=== PATIENT | female | born 1940 | race Hispanic/Latino ===

== ENCOUNTER → 2018-09-22 | Outpatient (CLI) | payer MEDICARE | LOC: MAMMO 13:44 | PROVIDERS: ATTEND Internal Medicine | DX: Z12.31 Encounter for screening mammogram for malignant neoplasm of breast (principal) | CPT/HCPCS: 77067 ==

== ENCOUNTER → 2020-01-16 | Outpatient (CLI) | payer MEDICARE ==
--- NOTE | 2020-01-16 15:21 | Diagnostic Imaging Report ---
TECHNIQUE: Frontal and lateral views of the chest. INDICATION: ^SIMPLE CHRONIC BRONCHITIS COMPARISON: None. IMPRESSION: Lines and hardware: None. Heart and mediastinum: Normal cardiomediastinal silhouette. Lungs and pleura: No focal airspace consolidation. No pleural effusion. No pneumothorax. Soft tissues and bones: No acute bony abnormality. Signed by: Delonte Kunz MD on 01/16/2020 3:18 PM
== END ==
LOC: RAD 14:22
PROVIDERS: ATTEND Internal Medicine
DX: J41.0 Simple chronic bronchitis (principal)
CPT/HCPCS: 71046

== ENCOUNTER 2020-04-05 20:18 | Inpatient (IN) | payer MEDICARE, OTHER ==
[~2020-04-05] VITALS: Ht 149.9 cm; Wt 61.3 kg
[2020-04-05] MEDS ORDERED: ONDANSETRON HCL INJ 2MG/ML 2ML 2 MG/ML VIAL IV STA (20:53)
[2020-04-05] MEDS ORDERED: SODIUM CHLORIDE 0.9% 1000ML 1,000 ML IV ONE ×2 (21:00→23:45)
--- NOTE | 2020-04-05 21:09 | Emergency Department Note ---
History of Present Illnes History of Present Illness Chief Complaint: COVID PUI History of Present Illness This is a 79 year old female presents to ED with report of generalized weakness, black/dark stools, diarrhea, n/v, nose bleeds, body aches, abdominal pain x3 days; PT STATES SENT HER FOR POSSIBLE COVID BUT PT'S SYMPTOMS ARE OF A GI NATURE. . Historian: Patient Arrival Mode: Car Onset (how long ago): day(s) (3) Location: ABD PAIN Quality: BLACK STOOLS, DIARRHEA, PAIN, N/V, GENERALIZED WEAKNESS Radiation: Reports non-radiation Severity: moderate Onset quality: gradual Duration (how long): day(s) (3) Timing of current episode: constant Progression: worsening Chronicity: new Context: Denies recent illness, Denies recent surgery Relieving factors: none Exacerbating factors: none Associated symptoms: Reports denies other symptoms Treatments prior to arrival: none Past Medical/Family History Physician Review I have reviewed the patient's past medical and family history. Any updates have been documented here. Past Medical History Recent Fever: No Clinical Suspicion of Infectio: No New/Unexplained Change in Ment: No Past Medical History: Hypertension, CAD, Anemia, DVT/PE Other Medical History: Glaucoma PVD Past Surgical History: PCI Social History Smoking Cessation: Never Smoker Alcohol Use: None Any Illegal Drug Use: No Family History Family history of heart diseas: Yes Other family history HTN,CAD Review of Systems Review of Systems Constitutional: Reports no symptoms EENTM: Reports no symptoms Cardiovascular: Reports no symptoms Respiratory: Reports no symptoms Gastrointestinal: Reports as per HPI Genitourinary: Reports no symptoms Musculoskeletal: Reports no symptoms Integumentary: Reports no symptoms Neurological: Reports no symptoms Psychological: Reports no symptoms Endocrine: Reports no symptoms Hematological/Lymphatic: Reports no symptoms Physical Exam Related Data Allergies: Coded Allergies: adhesive tape (Verified Allergy, Intermediate, 04/05/20) Triage Vital Signs Vital Signs Date Time Temp Pulse Resp B/P (MAP) Pulse Ox O2 Delivery O2 Flow Rate FiO2 04/05/20 20:39 98.1 78 15 98/59 98 Room Air Vital signs reviewed: Yes Physical Exam CONSTITUTIONAL Constitutional: Present well-developed, Present well-nourished; Absent distressed HENT HENT: Present normocephalic, Present atraumatic, Present oropharynx clear/moist, Present nose normal HENT L/R: Present left ext ear normal, Present right ext ear normal EYES Eyes: Reports PERRL, Reports conjunctivae normal NECK Neck: Present ROM normal PULMONARY Pulmonary: Present effort normal, Present breath sounds normal CARDIOVASCULAR Cardiovascular: Present regular rhythm, Present heart sounds normal, Present capillary refill normal, Present normal rate GASTROINTESTINAL Abdominal: Present soft, Present bowel sounds normal, Present tender (ANA PAULA UMBILICAL AND LLQ) GENITOURINARY Genitourinary: Present exam deferred SKIN Skin: Present warm, Present dry MUSCULOSKELETAL Musculoskeletal: Present ROM normal NEUROLOGICAL Neurological: Present alert, Present oriented x 3, Present no gross motor or sensory deficits PSYCHOLOGICAL Psychological: Present mood/affect normal, Present judgement normal Exam - additional comments RECTAL BROWN STOOL PRESENT Results Laboratory Laboratory Laboratory Tests Test 04/05/20 21:59 04/05/20 21:50 04/05/20 20:50 Urine Color Yellow (YELLOW) Urine Clarity Clear (CLEAR) Urine pH 5 (5 - 7) Urine Specific [place] 1.010 (1.010-1.025) Urine Protein Negative (NEGATIVE) Urine Glucose (UA) Negative (NEGATIVE) Urine Ketones Negative (NEGATIVE) Urine Blood Negative (NEGATIVE) Urine Nitrite Negative (NEGATIVE) Urine Bilirubin Negative (NEGATIVE) Urine Urobilinogen 0.2 mg/dL (0.2 - 1) Urine Leukocyte Esterase Negative (NEGATIVE) Urine RBC None /HPF (0-5) Urine WBC None /HPF (0-5) Urine Epithelial Cells Moderate /LPF (NONE) Urine Bacteria Few /HPF (NONE) Stool Occult Blood Positive (NEGATIVE) White Blood Count 6.96 x10e3/uL (4.8-10.8) Red Blood Count 3.54 x10e6/uL (3.6-5.1) Hemoglobin 11.2 g/dL (12.0-16.0) Hematocrit 35.5 % (34.2-44.1) Mean Corpuscular Volume 100.3 fL (81-99) Mean Corpuscular Hemoglobin 31.6 pg (28-32) Mean Corpuscular Hemoglobin Concent 31.5 g/dL (31-35) Red Cell Distribution Width 14.2 % (11.7-14.4) Platelet Count 301 x10e3/uL (140-360) Neutrophils (%) (Auto) 65.5 % (38.7-80.0) Lymphocytes (%) (Auto) 20.5 % (18.0-39.1) Monocytes (%) (Auto) 11.4 % (4.4-11.3) Eosinophils (%) (Auto) 2.0 % (0.0-6.0) Basophils (%) (Auto) 0.3 % (0.0-1.0) Neutrophils # (Auto) 4.6 (2.1-6.9) Lymphocytes # (Auto) 1.4 (1.0-3.2) Monocytes # (Auto) 0.8 (0.2-0.8) Eosinophils # (Auto) 0.1 (0.0-0.4) Basophils # (Auto) 0.0 (0.0-0.1) Absolute Immature Granulocyte (auto 0.02 x10e3/uL (0-0.1) Prothrombin Time 12.8 seconds (11.9-14.5) Prothromb Time International Ratio 0.92 Activated Partial Thromboplast Time 30.4 seconds (23.8-35.5) Sodium Level 136 mmol/L (136-145) Potassium Level 4.5 mmol/L (3.5-5.1) Chloride Level 108 mmol/L (98-107) Carbon Dioxide Level 17 mmol/L (22-29) Anion Gap 15.5 mmol/L (8-16) Blood Urea Nitrogen 68 mg/dL (7-26) Creatinine 5.20 mg/dL (0.57-1.11) Estimat Glomerular Filtration Rate 8 ML/MIN (60-) BUN/Creatinine Ratio 13 (6-25) Glucose Level 80 mg/dL (74-118) Calcium Level 9.1 mg/dL (8.4-10.2) Total Bilirubin 0.5 mg/dL (0.2-1.2) Aspartate Amino Transf (AST/SGOT) 17 IU/L (5-34) Alanine Aminotransferase (ALT/SGPT) 17 IU/L (0-55) Alkaline Phosphatase 84 IU/L (40-150) Total Protein 7.0 g/dL (6.5-8.1) Albumin 3.4 g/dL (3.5-5.0) Globulin 3.6 g/dL (2.3-3.5) Albumin/Globulin Ratio 0.9 (0.8-2.0) Amylase Level 116 U/L (25-125) Lipase 43 U/L (8-78) Lab results reviewed: Yes Imaging Imaging results reviewed: Yes Impressions EXAM: CT Abdomen and Pelvis WITHOUT contrast INDICATION: ABD PAIN, BLACK DIARRHEAD, WEAKNESS COMPARISON: None. TECHNIQUE: Abdomen and pelvis were scanned utilizing a multidetector helical scanner from the lung base to the pubic symphysis without administration of IV contrast. Absence of intravenous contrast decreases sensitivity for detection of focal lesions and vascular pathology. Coronal and sagittal reformations were obtained. Routine protocol was performed. IV CONTRAST: None ORAL CONTRAST: None COMPLICATIONS: None RADIATION DOSE: Total DLP: 591.94 mGy*cm Estimated effective dose: (DLP x 0.015 x size factor) mSv CTDIvol has been reviewed. It is below the limits set by the Radiation Protocol Committee (RPC). Dose modulation, iterative reconstruction, and/or weight based adjustment of the mA/kV was utilized to reduce the radiation dose to as low as reasonably achievable. FINDINGS: LINES and TUBES: None. LOWER THORAX: Central lobular emphysema. 6 mm subpleural nodule in the right middle lobe. Lingular atelectasis. Moderate fluid and debris for hiatal hernia. HEPATOBILIARY: 12 mm simple right hepatic cyst. Additional subcentimeter hypoattenuating lesions are too small to characterize, possibly additional cysts. No biliary ductal dilation. GALLBLADDER: No radio-opaque stones or sludge. No wall thickening. SPLEEN: No splenomegaly. PANCREAS: No focal masses or ductal dilatation. ADRENALS: No adrenal nodules KIDNEYS/URETERS: Renal atrophy. Duplicated left renal collecting system. No hydronephrosis. No cystic or solid mass lesions. Tiny punctate calcifications could represent vascular calcifications versus nonobstructive intrarenal calculi. GI TRACT: Diverticulosis without evidence of acute diverticulitis. No dilated bowel loops. Appendix is normal. PELVIC ORGANS/BLADDER: Unremarkable. LYMPH NODES: No lymphadenopathy. VESSELS: Diffuse atherosclerotic calcification of the abdominal aorta and its branches without aneurysmal dilatation of the abdominal aorta. PERITONEUM / RETROPERITONEUM: No free air or fluid. BONES: Bones are demineralized. Degenerative changes of the lumbar spine. Grade 1 anterolisthesis of L4 on L5. Subacute appearing nondisplaced right inferior pubic ramus fracture with healing changes. SOFT TISSUES: Unremarkable. IMPRESSION: 1. Subacute appearing nondisplaced right inferior pubic ramus fracture with fracture lucency and healing changes. 2. Centrilobular emphysema with a 6 mm subpleural pulmonary nodule in the right middle lobe. Follow-up low-dose chest CT is recommended in 6 months. 3. Colonic diverticulosis without evidence of acute diverticulitis. 4. No acute abdominopelvic process is identified on this non-contrast exam. Signed by: Sabrina Watson MD on 04/05/2020 11:26 PM Dictated By: SABRINA WATSON MD 25 Transcribed By: DIMAS on 04/05/202325 COPY TO: JOAO GLOVER MD~ Assessment & Plan Medical Decision Making MDM PT WITH LLQ PAIN, N/V/D, BLACK STOOLS CBC, CMP, AMYLASE,LIPASE, UA, CT ABD/PELVIS ORDERED TO EVAL FOR PANCREATITIS, ANEMIA, DIVERTICULITIS, UTI, COLITIS, GI BLEED. 1 LITER NS IV BOLUS ORDERED ZOFRAN 4 MG IV ORDERED I SPOKE WITH DR WALTERS ADMIT INPATIENT Assessment & Plan Final Impression: (1) Renal failure (ARF), acute on chronic (2) Occult blood in stools (3) Generalized weakness Depart Disposition: ADMITTED Last Vital Signs Date Time Temp Pulse Resp B/P (MAP) Pulse Ox O2 Delivery O2 Flow Rate FiO2 04/05/20 20:39 98.1 78 15 98/59 98 Room Air Medications in the ED Sodium Chloride 1,000 ml @ 999 mls/hr Q1H1M ONCE IV ; Start 04/05/20 at 21:00; Stop 04/05/20 at 22:00 Ondansetron HCl 4 mg NOW STAT IV ; Start 04/05/20 at 20:53; Stop 04/05/20 at 20:54; Status UNV JOAO GLOVER MD Apr 05, 2020 21:09
[2020-04-05 21:20] LABS: BASOPHILS % 0.3 % (0.0-1.0); EOSINOPHILS # (AUTO) 0.1 (0.0-0.4); HEMATOCRIT 35.5 % (34.2-44.1); HEMOGLOBIN 11.2 g/dL (12.0-16.0); LYMPHOCYTES # (AUTO) 1.4 (1.0-3.2); LYMPHOCYTES % 20.5 % (18.0-39.1); MEAN CORPUSCULAR HEMOGLOBIN 31.6 pg (28-32); MEAN CORPUSCULAR HGB CONC 31.5 g/dL (31-35); MEAN CORPUSCULAR VOLUME 100.3 fL (81-99); MONOCYTES # (AUTO) 0.8 (0.2-0.8); MONOCYTES % 11.4 % (4.4-11.3); NEUTROPHILS # (AUTO) 4.6 (2.1-6.9); NEUTROPHILS % 65.5 % (38.7-80.0); PLATELET COUNT 301 x10e3/uL (140-360); RED BLOOD COUNT 3.54 x10e6/uL (3.6-5.1); RED CELL DISTRIBUTION WIDTH 14.2 % (11.7-14.4)
[2020-04-05 21:30] LABS: INR 0.92; PROTHROMBIN TIME 12.8 seconds (11.9-14.5)
[2020-04-05 21:31] LABS: PARTIAL THROMBOPLASTIN TIME 30.4 seconds (23.8-35.5)
--- OUTSIDE RECORDS SUMMARY | 2020-04-05 21:32 | XMS REPORT | Continuity of Care Document ---
Author Author [facility] Organization [facility] Address [address] [place] [address] [place] [id number] Phone Unavailable Care Team Providers Care Piano Case And Bench Assembler Name Role Phone Jhony LANTIGUA Attphys Unavailable Problems This patient has no known problems. Allergies, Adverse Reactions, Alerts This patient has no known allergies or adverse reactions. Medications This patient has no known medications. Procedures This patient has no known procedures. Encounters Start Date/Time End Date/Time [facility] Source 2020-01-19 19:17:00 2020-01-19 19:17:00 Emergency E [id number] 2019-09-14 13:41:00 2019-09-14 13:41:00 Outpatient E [facility] MED [id number] Results Test Description Test Time Test Comments Results Result Comments Source CHEST 2 VIEWS 2020-01-16 15:14:00 [facility] [address] [place] [id number] Patient Name: DANIELLE CARRANZA MR #: [id number] : 1940 Age/Sex: 79/F Req #: [id number] Adm Physician: Ordered by: ADA LANTIGUA MD Report #: [id number] Location: [facility] Room/Bed: Procedure: [id number] DX/CHEST 2 VIEWS Exam Date: 05/19/20 Exam Time: 1430 REPORT STATUS: Signed TECHNIQUE: Frontal and lateral views of the chest. INDICATION: SIMPLE CHRONIC BRONCHITIS COMPARISON: None. IMPRESSION: Lines and hardware: None. Heart and mediastinum: Normal cardiomediastinal silhouette. Lungs and pleura: No focal airspace cons olidation. No pleural effusion. No pneumothorax. Soft tissues and bones: No acute bony abnormality. Signed by: Jose De Jesus Kunz MD on 01/16/2020 3:18 PM Dictated By: JOSE DE JESUS KUNZ DO 17 Transcribed By: DIMAS on 01/16/201517 COPY TO: ADA LANTIGUA MD MAMMOGRAPHY DIGITAL SCR BILAT 2018-09-22 14:24:00 [place] [address] Patient Name: DANIELLE CARRANZA MR #: [id number] : 1940 Age/Sex: 78/F Req #: [id number] Adm Physician: Ordered by: ADA LANTIGUA MD Report #: [id number] Location: MAMMO Room/Bed: Procedure: [id number] MG/MAMMOGRAPHY DIGITAL SCR BILAT Exam Date: 09/22/18 Exam Time: 1400 REPORT STATUS: Signed #[id number] - MGSCRBIL #BILATERAL DIGITAL SCREENING MAMMOGRAM WITH CAD: 09/22/2018 CLINICAL: Routine screening. Comparison is made to exams dated: 04/14/2017 mammogram - [facility] and 05/27/2015 mammogram - [facility]. Current study contains 4 films. The tissue of both breasts is predominantly fatty. Current study was also evaluated with a Computer Aided Detection (CAD) system. There are benign vascular calcifications in both breasts. There also is a biopsy clip in the right breast. No significant masses, calcifications, or other findings are seen in either breast. There has been no significant interval change. IMPRESSION: BENIGN There is no mammographic evidence of malignancy. A 1 year screening mammogram is recommended. The patient will be notified by letter of the results. Shreya navarro/carlos:09/28/2018 11:11:41 Coin Machine Supervisor: Leyla BRAGA)(Jhony), [facility] letter sent: Compared to Prior B9 Mammogram BI- RADS: 2 Benign Dictated By: SHREYA JUAREZ DO 1111 Transcribed By: CARLOS on 09/28/18 1111 COPY TO: ADA LANTIGUA MD MAMMOGRAPHY DIGITAL SCR BILAT [place] [address] Patient Name: DAINELLE CARRANZA MR #: [id number] : 1940 Age/Sex: 76/F Req #: [id number] [facility] Physician: Ordered by: ADA LANTIGUA MD Report #: [id number] Location: MAMMO Room/Bed: Procedure: [id number] MG/MAMMOGRAPHY DIGITAL SCR BILAT Exam Date: 04/14/17 Exam Time: 1600 REPORT STATUS: Signed #[id number] - MGSCRBIL #BILATERAL DIGITAL SCREENING MAMMOGRAM WITH CAD: 04/14/2017 CLINICAL: Routine screening. Comparison is made to exams dated: 05/27/2015 mammogram, 07/20/2013 stereotactic biopsy, 07/10/2013 mammogram, 07/10/2013 ultrasound and 04/25/2013 mammogram - [facility]. Current study contains 4 films. The tissue of both breasts is predominantly fatty. Current study was also evaluated with a Computer Aided Detection (CAD) system. There are benign vascular calcifications in both breasts. There also are benign calcifications in the right breast. Additionally there is a biopsy clip in the right breast. There are stable small densities in the right breast. No significant masses, calcifications, or other findings are seen in either breast. There has been no significant interval change. IMPRESSION: BENIGN There is no mammographic evidence of malignancy. A 1 year screening mammogram is recommended. The patient will be notified by letter of the results. Shreya Juarez Jr., D.O. cw/:04/30/2017 10:22:41 Coin Machine Supervisor: Leyla BRAGA)(Jhony), [facility] letter sent: Compared to Prior B9 Mammogram BI-RADS: 2 Benign Dictated By: SHREYA JUAREZ DO 1022 Transcribed By: CARLOS on 04/30/17 1022 COPY TO: ADA LANTIGUA MD
[2020-04-05 21:39] LABS: ALBUMIN 3.4 g/dL (3.5-5.0); ALBUMIN/GLOBULIN RATIO 0.9 (0.8-2.0); ANION GAP 15.5 mmol/L (8-16); CALCIUM 9.1 mg/dL (8.4-10.2); CREATININE, SERUM 5.2 mg/dL (0.57-1.11); POTASSIUM 4.5 mmol/L (3.5-5.1)
[2020-04-05 21:48] LABS: AMYLASE 116 U/L (25-125); LIPASE 43 U/L (8-78)
[2020-04-05 22:06] LABS: BILIRUBIN,URINE NEGATIVE (NEGATIVE); CLARITY,URINE CLEAR (CLEAR); COLOR,URINE YELLOW (YELLOW); KETONES,URINE NEGATIVE (NEGATIVE); LEUKOCYTE ESTERASE ,URINE NEGATIVE (NEGATIVE); NITRITE,URINE NEGATIVE (NEGATIVE); PROTEIN,URINE DIPSTICK NEGATIVE (NEGATIVE); URINE UROBILINOGEN 0.2 mg/dL (0.2 - 1)
[2020-04-05 22:12] LABS: BACTERIA,URINE FEW /HPF; EPITHELIAL CELLS,URINE MODERATE /LPF
--- NOTE | 2020-04-05 23:29 | Diagnostic Imaging Report ---
EXAM: CT Abdomen and Pelvis WITHOUT contrast INDICATION: ABD PAIN, BLACK DIARRHEAD, WEAKNESS COMPARISON: None. TECHNIQUE: Abdomen and pelvis were scanned utilizing a multidetector helical scanner from the lung base to the pubic symphysis without administration of IV contrast. Absence of intravenous contrast decreases sensitivity for detection of focal lesions and vascular pathology. Coronal and sagittal reformations were obtained. Routine protocol was performed. IV CONTRAST: None ORAL CONTRAST: None COMPLICATIONS: None RADIATION DOSE: Total DLP: 591.94 mGy*cm Estimated effective dose: (DLP x 0.015 x size factor) mSv CTDIvol has been reviewed. It is below the limits set by the Radiation Protocol Committee (RPC). Dose modulation, iterative reconstruction, and/or weight based adjustment of the mA/kV was utilized to reduce the radiation dose to as low as reasonably achievable. FINDINGS: LINES and TUBES: None. LOWER THORAX: Central lobular emphysema. 6 mm subpleural nodule in the right middle lobe. Lingular atelectasis. Moderate fluid and debris for hiatal hernia. HEPATOBILIARY: 12 mm simple right hepatic cyst. Additional subcentimeter hypoattenuating lesions are too small to characterize, possibly additional cysts. No biliary ductal dilation. GALLBLADDER: No radio-opaque stones or sludge. No wall thickening. SPLEEN: No splenomegaly. PANCREAS: No focal masses or ductal dilatation. ADRENALS: No adrenal nodules KIDNEYS/URETERS: Renal atrophy. Duplicated left renal collecting system. No hydronephrosis. No cystic or solid mass lesions. Tiny punctate calcifications could represent vascular calcifications versus nonobstructive intrarenal calculi. GI TRACT: Diverticulosis without evidence of acute diverticulitis. No dilated bowel loops. Appendix is normal. PELVIC ORGANS/BLADDER: Unremarkable. LYMPH NODES: No lymphadenopathy. VESSELS: Diffuse atherosclerotic calcification of the abdominal aorta and its branches without aneurysmal dilatation of the abdominal aorta. PERITONEUM / RETROPERITONEUM: No free air or fluid. BONES: Bones are demineralized. Degenerative changes of the lumbar spine. Grade 1 anterolisthesis of L4 on L5. Subacute appearing nondisplaced right inferior pubic ramus fracture with healing changes. SOFT TISSUES: Unremarkable. IMPRESSION: 1. Subacute appearing nondisplaced right inferior pubic ramus fracture with fracture lucency and healing changes. 2. Centrilobular emphysema with a 6 mm subpleural pulmonary nodule in the right middle lobe. Follow-up low-dose chest CT is recommended in 6 months. 3. Colonic diverticulosis without evidence of acute diverticulitis. 4. No acute abdominopelvic process is identified on this non-contrast exam. Signed by: Heber Lozano MD on 04/05/2020 11:26 PM
[2020-04-05] MEDS ORDERED: PANTOPRAZOLE 40 MG 10ML VIAL IV STA (23:41)
[2020-04-05] MEDS ORDERED: ONDANSETRON HCL INJ 2MG/ML 2ML 2 MG/ML VIAL IV PRN (23:45)
[2020-04-05] MEDS ORDERED: DEXTROSE 50% SYRINGE 50 ML IV PRN (23:45)
[2020-04-06] VITALS (7 sets, daily range): BP systolic 116–141; BP diastolic 44–69
--- OUTSIDE RECORDS SUMMARY | 2020-04-06 00:47 | XMS REPORT | Continuity of Care Document ---
Author Author [facility] t Organization [facility] Address [address] [place] [id number] Phone Unavailable Care Team Providers Care Clinical Research Manager Name Role Phone Cornell GLOVER Attphys Unavailable Jhony LANTIGUA Attphys Unavailable Problems This patient has no known problems. Allergies, Adverse Reactions, Alerts This patient has no known allergies or adverse reactions. Medications This patient has no known medications. Procedures This patient has no known procedures. Encounters Start Date/Time End Date/Time Encounter Type Admission Type Att[facility] Care Department Encounter ID Source 2020-01-19 19:17:00 2020-01-19 19:17:00 Emergency E [id number] 2019-09-14 13:41:00 2019-09-14 13:41:00 Outpatient E [facility] MED [id number] Results Test Description Test Time Test Comments Results Result Comments Source CT ABDOMEN/PELVIS WO 2020-04-05 23:10:00 [facility] [address] [place], [place] [address] Patient Name: DANIELLE CARRANZA MR #: [id number] : 1940 Age/Sex: 79/F Req #: [id number] Adm Physician: Ordered by: JOAO GLOVER MD Report #: [id number] Location: ER Room/Bed: Procedure: [id number] CT/CT ABDOMEN/PELVIS WO Exam Date: 04/05/20 Exam Time: 0 REPORT STATUS: Signed EXAM: CT Abdomen and Pelvis WITHOUT contrast INDICATION: ABD PAIN, BLACK DIARRHEAD, WEAKNESS COMPARISON: None. TECHNIQUE: Abdomen and pelvis were scanned utilizing a multidetector helical scanner from the lung base to the pubic symphysis without ad ministration of IV contrast. Absence of intravenous contrast decreases sensitivity for detection of focal lesions and vascular pathology. Coronal and sagittal reformations were obtained. Routine protocol was performed. IV CONTRAST: None ORAL CONTRAST: None COMPLICATIONS: None RADIATION DOSE: Total DLP: 591.94 mGy*cm Estimated effective dose: (DLP x 0.015 x size factor) mSv CTDIvol has been reviewed. It is below the limits set by the Radiation Protocol Committee (RPC). Dose modulation, iterative reconstruction, and/or weight based adjustment of the mA/kV was utilized to reduce the radiation dose to as low as reasonably achievable. FINDINGS: LINES and TUBES: None. LOWER THORAX: Central lobular emphysema. 6 mm subpleural nodule in the right middle lobe. Lingular atelectasis. Moderate fluid and debris for hiatal hernia. HEPATOBILIARY: 12 mm simple right hepatic cyst. Additional subcentimeter hypo attenuating lesions are too small to characterize, possibly additional cysts. No biliary ductal dilation. GALLBLADDER: No radio-opaque stones or sludge. No wall thickening. SPLEEN: No splenomegaly. PANCREAS: No focal masses or ductal dilatation. ADRENALS: No adrenal nodules KIDNEYS/URETERS: Renal atrophy. Duplicated left renal collecting system. No hydronephrosis. No cystic or solid mass lesions. Tiny punctate calcifications could represent vascular calcifications versus nonobstructive intrarenal calculi. GI TRACT: Diverticulosis without evidence of acute diverticulitis. No dilated bowel loops. Appendix is normal. PELVIC ORGANS/BLADDER: Unremarkable. LYMPH NODES: No lymphadenopathy. VESSELS: Diffuse atherosclerotic calcification of the abdominal aorta and its branches without aneurysmal dilatation of the abdominal aorta. PERITONEUM / RETROPERITONEUM: No free air or fluid. BONES: Bones are demineralized. Degenerative changes of the lumbar spine. Grade 1 anterolisthesis of L4 on L5. Subacute appearing nondisplaced right inferior pubic ramus fracture with healing changes. SOFT TISSUES: Unremarkable. IMPRESSION: 1. Subacute appearing nondisplaced right inferior pubic ramus fracture with fracture lucency and healing changes. 2. Centrilobular emphysema with a 6 mm subpleural pulmonary nodule in the right middle lobe. Follow-up low-dose chest CT is recommended in 6 months. 3. Colonic diverticulosis without evidence of acute diverticulitis. 4. No acute abdominopelvic process is identified on this non-contrast exam. Signed by: Sabrina Watson MD on 04/05/2020 11:26 PM Dictated By: SABRINA WATSON MD 25 Transcribed By: DIMAS on 04/05/202325 COPY TO: JOAO GLOVER MD CHEST 2 VIEWS 2020-01-16 15:14:00 [place] [address] Patient Name: DANIELLE CARRANZA MR #: [id number] : 1940 Age/Sex: 79/F Req #: [id number] Adm Physician: Ordered by: ADA LANTIGUA MD Report #: [id number] Location: [facility] Room/Bed: Procedure: [id number] DX/CHEST 2 VIEWS Exam Date: 01/16/20 Exam Time: 1430 REPORT STATUS: Signed TECHNIQUE: [...] Dictated By: JOSE DE JESUS KUNZ DO 1518 Transcribed By: DIMAS on 01/16/20 1518 COPY TO: ADA LANTIGUA MD MAMMOGRAPHY DIGITAL SCR BILAT 2018-09-22 14:24:00 [place] [address] Patient Name: DANIELLE CARRANZA MR #: [id number] : 1940 Age/Sex: 78/F Req #: [id number] Adm Physician: Ordered by: ADA LANTIGUA MD Report #: [id number] Location: MAMMO Room/Bed: Procedure: [id number] MG/MAMMOGRAPHY DIGITAL SCR BILAT Exam Date: 09/22/18 Exam Time: 1400 REPORT STATUS: Signed #[id number] - MGSCRBIL #BILATERAL DIGITAL SCREENING MAMMOGRAM WITH CAD: 09/22/2018 CLINICAL: Routine screening. Comparison is made to exams dated: 04/14/2017 mammogram - [facility] and 05/27/2015 mammogram - [facility]. Current study contains 4 films. The tissue [...] letter of the results. Shreya navarro/carlos:09/28/2018 11:11:41 Electric Transfer Operator: Leyla VEGA(R)(Jhony), [facility] letter sent: Compared to Prior B9 Mammogram BI- RADS: 2 Benign Dictated By: SHREYA JUAREZ DO 1111 Transcribed By: CARLOS on 09/28/18 1111 COPY TO: ADA LANTIGUA MD MAMMOGRAPHY DIGITAL SCR BILAT [place] [address] Patient Name: DANIELLE CARRANZA MR #: [id number] : 1940 Age/Sex: 76/F Req #: [id number] Adm Physician: Ordered by: ADA LANTIGUA MD Report #: [id number] Location: MAMMO Room/Bed: Procedure: [id number] MG/MAMMOGRAPHY DIGITAL SCR BILAT Exam Date: 04/14/17 Exam Time: 1600 REPORT STATUS: Signed #[id number] - MGSCRBIL #BILATERAL DIGITAL SCREENING MAMMOGRAM WITH CAD: 04/14/2017 CLINICAL: Routine screening. Comparison is made to exams dated: 05/27/2015 mammogram, 07/20/2013 stereotactic biopsy, 07/10/2013 mammogram, 07/10/2013 ultrasound and 04/25/2013 mammogram - [facility]. Current study contains 4 films. The tissue [...] results. Shreya Juarez Jr., D.O. cw/:04/30/2017 10:22:41 Electric Transfer Operator: Leyla BRAGA)(Jhony), [facility] letter sent: Compared to Prior B9 Mammogram BI-RADS: 2 Benign Dictated By: SHREYA JUAREZ DO 1022 Transcribed By: CARLOS on 04/30/17 1022 COPY TO: ADA LANTIGUA MD
[2020-04-06] MEDS ORDERED: SODIUM CHLORIDE 0.9% 1000ML 1,000 ML ONE (06:58)
--- NOTE | 2020-04-06 07:00 | NUR ---
BEDSIDE SHIFT REPORT RECEIVED FROM YOLIE ALCARAZ. PT DENIES NEEDS AT THIS TIME.
[2020-04-06] MEDS: INSULIN REGULAR, HUMAN 100 UNIT/1 ML 3ML VIAL SQ SCH ×4 (07:30→21:00)
--- NOTE | 2020-04-06 08:00 | NUR ---
SPOKE TO PT ABOUT MED LIST. PT STATES SHE IS CALLING HER DAUGHTER TO BRING MEDICATIONS BECAUSE SHE DOES NOT REMEMBER HER MEDICATIONS.
--- NOTE | 2020-04-06 11:12 | NUR ---
SPOKE TO DR WALTERS ABOUT COVID QUESTIONAIR ON ADMISSION. NO NEW ORDERS AT THIS TIME.
[2020-04-06] MEDS ORDERED: PNEUMOCOCCAL VACCINE POLYVALENT 23 MCG/0.5 ML VIAL IM SCH (12:00)
[2020-04-06] MEDS ORDERED: PREDNISONE5 MG PO (12:15)
[2020-04-06] MEDS ORDERED: MELOXICAM7.5 MG PO (12:15)
[2020-04-06] MEDS ORDERED: LISINOPRIL10 MG PO (12:15)
[2020-04-06] MEDS ORDERED: SUCRALFATE1 GM PO (12:15)
[2020-04-06] MEDS ORDERED: GABAPENTIN300 MG PO (12:15)
[2020-04-06] MEDS ORDERED: TIZANIDINE HCL4 M1 (12:15)
[2020-04-06] MEDS ORDERED: PROTONIX20 MG PO (12:15)
[2020-04-06] MEDS ORDERED: TRAZODONE HCL50 MG PO (12:15)
[2020-04-06] MEDS ORDERED: ATORVASTATIN CA10 MG PO (12:15)
[2020-04-06] MEDS ORDERED: PAROXETINE HCL20 MG PO (12:15)
[2020-04-06] MEDS ORDERED: CYCLOBENZAPRINE10 MG PO (12:15)
[2020-04-06] MEDS ORDERED: METHOTREXA25 MG/1 ML SC (12:18)
[2020-04-06] MEDS: SODIUM CHLORIDE 0.9% 1000ML 1,000 ML IV SCH (14:25)
--- NOTE | 2020-04-06 16:05 | Diagnostic Imaging Report ---
EXAMINATION: CHEST SINGLE (PORTABLE) INDICATION: ^SOB ^[id number] ^1515 COMPARISON: 01/16/2020. FINDINGS: TUBES and LINES: None. LUNGS: Lungs are well inflated. Lungs are clear. There is no evidence of pneumonia or pulmonary edema. PLEURA: No pleural effusion or pneumothorax. HEART AND MEDIASTINUM: The cardiac silhouette is normal in size. Increased density in the right paratracheal region may represent vascular structure, unchanged. There are atherosclerotic calcifications within the aorta. BONES AND SOFT TISSUES: No acute osseous lesion. Soft tissues are unremarkable. UPPER ABDOMEN: No free air under the diaphragm. IMPRESSION: No acute thoracic abnormality. Signed by: Dr. Ross Ramirez M.D. on 04/06/2020 4:01 PM
[2020-04-06] MEDS: PANTOPRAZOLE 40 MG 10ML VIAL IV SCH (17:01)
[2020-04-06] MEDS: SUCRALFATE 1 GM TAB PO SCH (17:01)
--- NOTE | 2020-04-06 18:21 | Diagnostic Imaging Report ---
EXAM: Renal Ultrasound INDICATION: Renal failure. ^[id number] ^0439 COMPARISON: None TECHNIQUE: Transverse and longitudinal images of the kidneys and bladder were obtained. FINDINGS: Right Kidney: Length: 8.4 cm, mildly atrophic. Appearance: Increased echogenicity. Collecting system: No hydronephrosis Stones: None Cyst/Mass: None Left Kidney: Length: 9.7 cm Appearance: Increased echogenicity. Collecting system: No hydronephrosis Stones: None Cyst/Mass: None Bladder: Normal IMPRESSION: Increased echogenicity of the renal cortex bilaterally may reflect medical renal disease. No hydronephrosis or shadowing nephrolithiasis. Signed by: Dr. Ross Ramirez M.D. on 04/06/2020 6:17 PM
--- NOTE | 2020-04-06 19:21 | NUR ---
Received pt in bed awake and alert. No c/o discomfort at this time. Bed locked and low. Personal items and call light within reach. No s/sx of acute distress noted. Report received at bedside.
--- NOTE | 2020-04-06 20:30 | History and Physical ---
CHIEF COMPLAINT: Generalized weakness. HISTORY OF PRESENT ILLNESS: This is a 79-year-old female, very poor historian during my interview with her. 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 According to the records, she has hypertension, CAD, presents to the ED with complaints of generalized weakness and questionable black tarry stool. The patient was seen and evaluated at bedside on the medical floor and I discussed overall plan of care with her and actually after what was going on at home. She cannot recall that she has any black stool, but she does report that it is dark stool in nature. Reports some generalized weakness. She does not want to get up and move around according to her. She thought that she had maybe COVID-19 and which her family brought her in, but she denies any cough, congestion, or any fever at home. The patient was seen and evaluated at bedside on the medical floor with the nursing staff, leann present. Currently, the patient is doing well with no other issues at this time. She was stable during my evaluation. REVIEW OF SYSTEMS: Questionable black tarry stool, generalized weakness. Diarrhea pain, nausea, vomiting. The rest of 14-point review of systems have been reviewed with the patient and are negative. ALLERGIES: ADHESIVE TAPE. HOME MEDICATIONS: 1. Tizanidine. 2. Trazodone. 3. Methotrexate. 4. Meloxicam. 5. Lisinopril. 6. Gabapentin. 7. Cyclobenzaprine. 8. Atorvastatin. 9. Protonix. 10. Paroxetine. 11. Prednisone. 12. Carafate. PAST MEDICAL HISTORY: She has a history of rheumatoid arthritis, hypertension, CAD, chronic pain syndrome, history of PVD, glaucoma. PAST SURGICAL HISTORY: Reports states that she had a history of a PCI, but I am not sure where. She is not a good historian to tell me. PAST FAMILY HISTORY: Reports hypertension CAD. SOCIAL HISTORY: No drugs. No alcohol. Does not smoke. LABORATORY DATA: Labs show white count 6.9, hemoglobin 11.2, hematocrit 35, platelets of 301. Chemistry, sodium 138, potassium 4.5, chloride 108, bicarb 17, anion gap of 15. BUN is 16, creatinine 5.2. LFTs within normal range. Albumin was 3.4, lipase 43. Urinalysis negative stool occult positive. Coronavirus pending. MICROBIOLOGY: None. IMAGING STUDIES: CT abdomen and pelvis showed a subacute-appearing nondisplaced right inferior pubic rami fracture with fracture lucency and healing changes, which seems to be chronic in nature. Central lobular emphysema with a 6 mm subpleural nodule on the right middle lobe. No acute intraabdominal or pelvic process noted. Colonic diverticulosis without evidence of acute diverticulitis. PHYSICAL EXAMINATION: VITAL SIGNS: Temperature is 97.3, pulse 55, respiratory rate is 19. Her blood pressure is 116/44, pulse ox 100% on room air. GENERAL: Not in acute distress. Alert and oriented x3. Cooperative on examination. HEENT: Head; normocephalic, atraumatic. Eyes; pupils are equal, round, and reactive to light bilaterally. Extraocular movements intact bilaterally. Throat; no evidence of erythema or exudates in the posterior pharynx. Has poor dentition. NECK: Supple. Good range of motion. PULMONARY: Clear to auscultation bilaterally. No wheezing, no rales, no rhonchi, no crackles appreciated. CARDIOVASCULAR: Positive S1 and S2. No murmurs, rubs, or gallops appreciated. ABDOMEN: Soft, nondistended, and nontender to palpation. Bowel sounds present. MUSCULOSKELETAL: Strength is 5/5 throughout. No evidence of any muscle deficits on examination. No weakness appreciated. NEUROLOGIC: Cranial nerves 2 through 12 grossly intact. No evidence of any neurological deficits on exam. SKIN: Intact, warm to touch. Good cap refill. PSYCHIATRIC: Normal affect and mood. EXTREMITIES: No edema. Good range of motion throughout. IMPRESSION: 1. Generalized weakness is multifactorial in nature, but could be secondary to acute kidney injury, possibly secondary to dehydration. 2. Acute kidney injury versus chronic kidney disease, unknown baseline creatinine. 3. Questionable black tarry stool. 4. Subacute nondisplaced right inferior pubic rami fracture with healing changes, likely to be chronic in nature. 5. Hypertension. 6. Rheumatoid arthritis. PLAN: At this time, for the patient's underlying acute kidney injury, the patient's repeat chemistry is pending from this morning. Her electrolytes are stable. We will put her on a renal diet. Continue with IV fluids for now. Renally dose all medications. Avoid any high potassium products. As for her underlying hemoglobin, her hemoglobin is stable at 11.2, but does have a positive occult blood, but she does take meloxicam at home. Put on Protonix 40 mg b.i.d., get GI consultation and repeat labs in the morning. Imaging studies concerning for subacute pelvic rami fracture, but seems to be chronic in nature based on the fact that it shows some healing processes there. As for her rheumatoid arthritis, we are going to resume same home medications, but avoid any pain medications to avoid any confusion and renally dose all medications. SCDs for DVT prophylaxis. We will avoid any anticoagulation due to concerns of GI bleed. Discussed plan of care with nursing staff. MD SHANNON Adams/MICHELLE /[id number]
[2020-04-06] MEDS: ATORVASTATIN 10 MG TAB PO SCH (21:00)
[2020-04-07] VITALS: BP 133/85
--- NOTE | 2020-04-07 01:05 | NUR ---
patient received from Ana Martins RN at this time. Patient awake, alert, lying quietly in bed. ivf infusing to left forearm with iv site red/swollen. patient c/o pain to site. iv d/c'd at this time. call draper placed within reach. patient instructed to call for assistance when needed.
--- NOTE | 2020-04-07 02:00 | NUR ---
new iv placed to left hand #20 gauge at this time. ivf infusing without difficulty.
[2020-04-07 04:00] VITALS: BP 128/59
[2020-04-07] MEDS: SODIUM CHLORIDE 0.9% 1000ML 1,000 ML IV SCH ×2 (04:09→17:15)
[2020-04-07 06:39] LABS: BASOPHILS % 0.4 % (0.0-1.0); EOSINOPHILS # (AUTO) 0.1 (0.0-0.4); EOSINOPHILS % 2.6 % (0.0-6.0); HEMOGLOBIN 9.6 g/dL (12.0-16.0); LYMPHOCYTES # (AUTO) 0.8 (1.0-3.2); LYMPHOCYTES % 15.1 % (18.0-39.1); MEAN CORPUSCULAR VOLUME 103.3 fL (81-99); MONOCYTES # (AUTO) 0.6 (0.2-0.8); NEUTROPHILS # (AUTO) 3.9 (2.1-6.9); NEUTROPHILS % 71.4 % (38.7-80.0); PLATELET COUNT 182 x10e3/uL (140-360); RED CELL DISTRIBUTION WIDTH 14.3 % (11.7-14.4)
[2020-04-07 06:54] LABS: ANION GAP 12.5 mmol/L (8-16); CALCIUM 7.7 mg/dL (8.4-10.2); CREATININE, SERUM 3.78 mg/dL (0.57-1.11); POTASSIUM 4.5 mmol/L (3.5-5.1)
[2020-04-07] MEDS: INSULIN REGULAR, HUMAN 100 UNIT/1 ML 3ML VIAL SQ SCH ×4 (07:30→21:00)
[2020-04-07] MEDS: SUCRALFATE 1 GM TAB PO SCH ×2 (08:25→17:40)
[2020-04-07] MEDS: PAROXETINE HCL 20 MG TAB PO SCH (08:25)
[2020-04-07 08:27] LABS: FERRITIN 69.22 ng/mL (4.63-204.00)
[2020-04-07] MEDS: PREDNISONE 5 MG TAB PO SCH (08:32)
[2020-04-07] MEDS: PANTOPRAZOLE 40 MG 10ML VIAL IV SCH ×2 (08:33→17:40)
[2020-04-07 08:45] VITALS: BP 102/81
[2020-04-07] MEDS ORDERED: PANTOPRAZOLE SOD 40 MG TABEC PO SCH (09:00)
[2020-04-07 10:14] LABS: ALBUMIN 2.7 g/dL (3.5-5.0); BILIRUBIN,DIRECT 0.2 mg/dL (0.0-0.5)
[2020-04-07 11:16] LABS: PLATELET ESTIMATE ADEQUATE; RBC MORPHOLOGY COMMENT NORMAL
[2020-04-07 11:17] LABS: PLATELET MORPHOLOGY COMMENT FEW EDTA CLUMPING
[2020-04-07 15:06] VITALS: BP 118/55
[2020-04-07 15:13] LABS: ANION GAP 11.9 mmol/L (8-16); CALCIUM 7.6 mg/dL (8.4-10.2); CREATININE, SERUM 3.53 mg/dL (0.57-1.11); POTASSIUM 4.9 mmol/L (3.5-5.1)
--- NOTE | 2020-04-07 15:29 | Progress Note ---
DATE: 04/07/2020 Medicine Progress Note SUBJECTIVE: The patient is doing very well today with no complaints. Her hemoglobin did drop today to 9.6. She is scheduled for EGD later today by GI. PHYSICAL EXAMINATION: VITAL SIGNS: Temperature is 98, pulse 72, respiratory rate is 20, blood pressure 102/81, and pulse ox 96% on room air. GENERAL: Not in acute distress. Alert and oriented x3. Cooperative on examination. HEENT: Head; normocephalic, atraumatic. Eyes; pupils are equal, round, and reactive to light bilaterally. Extraocular movements intact bilaterally. Throat; no evidence of erythema or exudates in the posterior pharynx. Has poor dentition. NECK: Supple. Good range of motion. PULMONARY: Clear to auscultation bilaterally. No wheezing, no rales, no rhonchi, no crackles appreciated. CARDIOVASCULAR: Positive S1 and S2. No murmurs, rubs, or gallops appreciated. ABDOMEN: Soft, nondistended, and nontender to palpation. Bowel sounds present. MUSCULOSKELETAL: Strength is 5/5 throughout. No evidence of any muscle deficits on examination. No weakness appreciated. NEUROLOGIC: Cranial nerves 2 through 12 grossly intact. No evidence of any neurological deficits on exam. SKIN: Intact. Warm to touch. Good cap refill. PSYCHIATRIC: Normal affect and mood. EXTREMITIES: No edema. Good range of motion throughout. LABORATORY FINDINGS: Show white count is 5.4, hemoglobin 9.6, hematocrit 31, and platelets of 182. Coagulation noted. Chemistry; sodium was 134, potassium 4.5, chloride 113, bicarb is 13, anion gap of 12, BUN is 52, creatinine is 3.78, downtrending from 5.2. Repeat chemistry pending. Calcium is 7.7. Glucose was 73. Albumin was 2.7. Coronavirus was pending. IMAGING STUDIES: Renal ultrasound showed right kidney was 8.4 cm, left kidney is 9.7 cm. There is some increased echogenicity bilaterally with renal medical disease. No hydronephrosis or shadowing of the nephrolithiasis. Chest x-ray, no thoracic abnormality. IMPRESSION: 1. Generalized weakness, multifactorial from acute kidney injury, uremia, and secondary to dehydration. 2. Acute kidney injury versus chronic kidney disease, unknown baseline creatinine, now improving. 3. Questionable black tarry stool. 4. Subacute nondisplaced right inferior pubic rami fracture with healing changes, likely to be chronic in nature. 5. Hypertension. 6. Rheumatoid arthritis. PLAN: At this time, the patient is scheduled for EGD later today. Her hemoglobin did drop a bit and we will follow with GI recommendations. As for her acute kidney injury, it is resolving, downtrending and improving. Continue with normal saline for now. Get repeat labs in the morning. She does show renal ultrasound, is consistent with chronic medical renal disease with the right kidney being very small. Continue with Protonix 40 mg b.i.d. for now. Her blood pressure is stable. As for her subacute pelvic rami fracture, this is chronic in nature based on the healing process is noted. No further workup is needed for that. Resume same home medications. Hold anticoagulation due to concerns for bleeding. MD SHANNON Adams/MICHELLE /[id number]
[2020-04-07 18:27] VITALS: BP 148/78
[2020-04-07 19:25] VITALS: BP 148/78
[2020-04-07] MEDS: ATORVASTATIN 10 MG TAB PO SCH (21:30)
[2020-04-08] VITALS: BP 122/55
[2020-04-08 04:00] VITALS: BP 124/50
[2020-04-08 06:22] LABS: BASOPHILS % 0.6 % (0.0-1.0); EOSINOPHILS # (AUTO) 0.1 (0.0-0.4); EOSINOPHILS % 2.2 % (0.0-6.0); HEMATOCRIT 27.7 % (34.2-44.1); HEMOGLOBIN 8.6 g/dL (12.0-16.0); LYMPHOCYTES # (AUTO) 1.1 (1.0-3.2); LYMPHOCYTES % 21.2 % (18.0-39.1); MEAN CORPUSCULAR HEMOGLOBIN 31.7 pg (28-32); MEAN CORPUSCULAR VOLUME 102.2 fL (81-99); MONOCYTES # (AUTO) 0.6 (0.2-0.8); MONOCYTES % 11.9 % (4.4-11.3); NEUTROPHILS # (AUTO) 3.2 (2.1-6.9); NEUTROPHILS % 63.5 % (38.7-80.0); PLATELET COUNT 239 x10e3/uL (140-360); RED BLOOD COUNT 2.71 x10e6/uL (3.6-5.1); RED CELL DISTRIBUTION WIDTH 14.5 % (11.7-14.4)
[2020-04-08] MEDS: SODIUM CHLORIDE 0.9% 1000ML 1,000 ML IV SCH (06:41)
--- NOTE | 2020-04-08 06:45 | NUR ---
patient endorsed to next shift for continuity of care.
[2020-04-08 06:46] LABS: ANION GAP 9.6 mmol/L (8-16); CALCIUM 7.2 mg/dL (8.4-10.2); CREATININE, SERUM 3.25 mg/dL (0.57-1.11); POTASSIUM 4.6 mmol/L (3.5-5.1)
[2020-04-08] MEDS: INSULIN REGULAR, HUMAN 100 UNIT/1 ML 3ML VIAL SQ SCH ×4 (07:30→20:40)
[2020-04-08 07:57] VITALS: BP 114/48
[2020-04-08] MEDS: IRON SUCROSE 100 MG in SODIUM CHLORIDE 0.9% 100 ML 100 ML IV SCH (08:47)
[2020-04-08] MEDS: SUCRALFATE 1 GM TAB PO SCH ×2 (08:47→17:18)
[2020-04-08] MEDS: PREDNISONE 5 MG TAB PO SCH (08:47)
[2020-04-08] MEDS: PAROXETINE HCL 20 MG TAB PO SCH (08:47)
[2020-04-08] MEDS: PANTOPRAZOLE 40 MG 10ML VIAL IV SCH ×2 (08:47→17:18)
--- NOTE | 2020-04-08 14:55 | Operative Report ---
DATE OF PROCEDURE: 04/08/2020 SURGEON: Akash Banda MD PROCEDURE: EGD with biopsies. INDICATIONS FOR EGD: Coffee-ground emesis, history of melena. MEDICATIONS: The patient was done under MAC, please see anesthesiologist's note. PROCEDURE IN DETAIL: With the patient in the left lateral decubitus position, the flexible fiberoptic Olympus gastroscope was introduced into the esophagus under direct visualization without any difficulty. A large ulcer approximately 1.2 cm in size was noted in the distal esophagus. There was no active bleeding or stigmata of recent hemorrhage. Margins were not heaped up. GE junction was somewhat nodular and that was biopsied. The scope was then advanced with ease into the stomach traversing a [id number] hiatal hernia. Mucosa overlying the antrum and the body revealed some patchy erythema and [id number]-[id number] edema. Biopsies were obtained, sent to stain for H pylori. Pylorus was intubated with ease and the scope was advanced all the way to the second portion of the duodenum. The scope was then withdrawn slowly. Mucosa overlying the proximal second portion and the duodenal bulb appeared to be within normal limits. The scope was then withdrawn back into the stomach and retroflexed and the fundus as well as the cardia could not be well visualized as the patient was belching and insufflating air precluding optimal distention of the stomach. The scope was then withdrawn. The patient tolerated procedure well. IMPRESSION: 1. Large esophageal ulcer approximately 1.2 cm in size distal esophagus without active bleeding or stigmata of recent hemorrhage. 2. GE junction somewhat nodular, biopsied. 3. Large hiatal hernia. 4. Gastritis, biopsied, biopsies sent to stain for H pylori. PLAN: Follow up histology. Continue current therapy. Add Carafate 1 g p.o. a.c. t.i.d. and at bedtime. Akash Banda MD [facility] [place] [place]/MODL /[id number] cc: Carla Mata MD
[2020-04-08 15:48] VITALS: BP 136/44
[2020-04-08] MEDS ORDERED: SUCRALFATE 1 GM/10 ML SUSP PO SCH (16:30)
[2020-04-08] MEDS ORDERED: MIDAZOLAM HCL 2 MG/2 ML VIAL ONE (18:44)
[2020-04-08] MEDS ORDERED: FENTANYL CITRATE/PF 100MCG/2 ML INJ ONE (18:44)
[2020-04-08 20:03] VITALS: BP 128/68
[2020-04-08] MEDS ORDERED: LIDOCAINE HCL 2% LOCAL INJ 5 ML SDV VIAL INJ ONE (20:13)
[2020-04-08] MEDS ORDERED: METOCLOPRAMIDE HCL 10 MG/2ML VIAL ONE (20:13)
[2020-04-08] MEDS ORDERED: PROPOFOL IV EMULSION 10 MG/ML 20 ML VIAL ONE (20:13)
[2020-04-08] MEDS: ATORVASTATIN 10 MG TAB PO SCH (20:42)
[2020-04-08 21:54] VITALS: BP 128/68
[2020-04-09] VITALS (9 sets, daily range): BP systolic 142–164; BP diastolic 55–75
--- NOTE | 2020-04-09 02:50 | Progress Note ---
DATE: 04/08/2020 Medicine Progress Note SUBJECTIVE: The patient was seen this afternoon. Scheduled for EGD today. PHYSICAL EXAMINATION: VITAL SIGNS: She is afebrile. Normotensive. Respiratory rate is good. GENERAL: Not in acute distress. Alert and oriented x3. Cooperative on examination. HEENT: Head is normocephalic and atraumatic. Eyes; pupils are equal, round, and reactive to light bilaterally. Extraocular movements are intact bilaterally. Throat; no evidence of erythema or exudates in the posterior pharynx. Has poor dentition. NECK: Supple. Good range of motion. PULMONARY: Clear to auscultation bilaterally. No wheezing, rales, or rhonchi. No crackles appreciated. CARDIOVASCULAR: Positive S1, S2. No murmurs, rubs, or gallops. ABDOMEN: Soft, nondistended, and nontender to palpation. Bowel sounds present. MUSCULOSKELETAL: Strength is 5/5 throughout. No evidence of any muscle deficits on examination. SKIN: Intact. Warm to touch. Good cap refill. PSYCHIATRIC: Normal affect and mood. EXTREMITIES: No edema. Good range of motion. LABORATORY DATA: Show CBC; , hemoglobin dropped to 8.6. Chemistry reviewed, sodium was 137, bicarbonate was 15, creatinine was 3.25, which is downtrending. IMAGING STUDIES: Nothing new. IMPRESSION: 1. Generalized weakness, multifactorial from acute kidney injury secondary to dehydration. 2. Acute kidney injury versus chronic kidney disease, unknown baseline, but creatinine is improving. 3. Black tarry stool, status post EGD. 4. Subacute nondisplaced right inferior pubic rami fracture with healing changes, likely to be chronic in nature. 5. Hypertension. 6. Rheumatoid arthritis. PLAN: At this time, the patient is scheduled for EGD later today. Hemoglobin has dropped today. We will continue to monitor very closely. Continue with Protonix. Get a.m. labs. Renal function is improving. Electrolytes are stable. Continue to monitor very closely. MD SHANNON Adams/MODL /[id number]
[2020-04-09] MEDS: SODIUM CHLORIDE 0.9% 1000ML 1,000 ML IV SCH ×2 (03:57→08:32)
[2020-04-09 05:48] LABS: BASOPHILS % 0.4 % (0.0-1.0); EOSINOPHILS # (AUTO) 0.1 (0.0-0.4); EOSINOPHILS % 1.1 % (0.0-6.0); HEMATOCRIT 30.2 % (34.2-44.1); HEMOGLOBIN 9.2 g/dL (12.0-16.0); LYMPHOCYTES # (AUTO) 1.1 (1.0-3.2); LYMPHOCYTES % 15.2 % (18.0-39.1); MEAN CORPUSCULAR HEMOGLOBIN 31.4 pg (28-32); MEAN CORPUSCULAR HGB CONC 30.5 g/dL (31-35); MEAN CORPUSCULAR VOLUME 103.1 fL (81-99); MONOCYTES # (AUTO) 0.6 (0.2-0.8); MONOCYTES % 8.3 % (4.4-11.3); NEUTROPHILS # (AUTO) 5.6 (2.1-6.9); NEUTROPHILS % 74.5 % (38.7-80.0); PLATELET COUNT 221 x10e3/uL (140-360); RED BLOOD COUNT 2.93 x10e6/uL (3.6-5.1); RED CELL DISTRIBUTION WIDTH 14.7 % (11.7-14.4)
[2020-04-09 06:15] LABS: ANION GAP 13.2 mmol/L (8-16); CALCIUM 7.3 mg/dL (8.4-10.2); CREATININE, SERUM 2.9 mg/dL (0.57-1.11); POTASSIUM 4.2 mmol/L (3.5-5.1)
--- NOTE | 2020-04-09 06:50 | NUR ---
BEDSIDE REPORT RECEIVED FROM EDDIE URBANO. PATIENT FOUND LYING IN BED IN NO ACUTE DISTRESS, HOB ELEVATED 30 DEGREES. PATIENT WAS EDUCATED ON FALL RISK PRECAUTIONS AND CALL THE NURSE WITH NEEDS. PATIENT VERBALIZED UNDERSTANDING. CALL LIGHT AND BELONGINGS PLACED NEARBY. WILL CONTINUE TO MONITOR.
[2020-04-09] MEDS: INSULIN REGULAR, HUMAN 100 UNIT/1 ML 3ML VIAL SQ SCH ×4 (07:30→20:40)
[2020-04-09] MEDS: SUCRALFATE 1 GM TAB PO SCH ×2 (08:31→16:34)
[2020-04-09] MEDS: PAROXETINE HCL 20 MG TAB PO SCH (09:06)
[2020-04-09] MEDS: IRON SUCROSE 100 MG in SODIUM CHLORIDE 0.9% 100 ML 100 ML IV SCH (09:06)
[2020-04-09] MEDS: PREDNISONE 5 MG TAB PO SCH (09:06)
[2020-04-09] MEDS: PANTOPRAZOLE 40 MG 10ML VIAL IV SCH ×2 (09:06→16:34)
[2020-04-09] MEDS: LACTATED RINGER'S 1,000 ML INJ SCH (14:14)
[2020-04-09] MEDS ORDERED: ONDANSETRON HCL 4 MG ORAL DISINTEGRATING TAB PO PRN (17:30)
--- NOTE | 2020-04-09 19:55 | NUR ---
Bedside rounds completed with morning nurse. Pt alert and oriented to name, lying in bed HOB 45 degrees, denies pain at this time. Call light within reach. Bed low and locked. Addendum: 04/09/20 at 2119 by Vipin Orozco RN [id number]
[2020-04-09] MEDS: ATORVASTATIN 10 MG TAB PO SCH (20:40)
--- NOTE | 2020-04-09 22:30 | NUR ---
Rounds with Dr. Tonya Banda, he informed Pt she has large ulcer in esophagus, needs 2 months outpatient f/u with GI doctor, no further orders.
--- NOTE | 2020-04-09 22:46 | Progress Note ---
DATE: 04/09/2020 Medicine Progress Note SUBJECTIVE: The patient is doing well today with no complaints. She is tolerating her diet well. No overnight events. PHYSICAL EXAMINATION: VITAL SIGNS: Temperature is 98, pulse 61, respiratory rate is 21, blood pressure was 146/75, pulse ox 98% on room air. GENERAL: No acute distress. Alert and oriented x3. Cooperative on examination. HEENT: Head is normocephalic and atraumatic. Eyes; pupils are equal, round, and reactive to light bilaterally. Extraocular movements are intact bilaterally. Throat, no evidence of any erythema or exudates in the posterior pharynx. Has poor dentition. NECK: Supple. Good range of motion. PULMONARY: Clear to auscultation bilaterally. No wheezing, rales, or rhonchi. No crackles appreciated. CARDIOVASCULAR: Positive S1, S2. No murmurs, rubs, or gallops appreciated. ABDOMEN: Soft, nondistended, nontender to palpation. Bowel sounds present. MUSCULOSKELETAL: At baseline. NEUROLOGICAL: Alert and oriented x3. LABORATORY FINDINGS: White count 7.4, hemoglobin 9.2, hematocrit is 30, platelets of 221. Coagulation; PT 12, INR 0.92, PTT 30. Chemistry; sodium 140, potassium 4.2, chloride was 119, bicarbonate was 12, anion gap of 13, BUN is 40, creatinine was 2.9, calcium is 7.3. Coronavirus not detected. IMAGING STUDIES: None. IMPRESSION: 1. Generalized weakness, multifactorial from acute kidney injury secondary to dehydration, downtrending creatinine, much improved. 2. Acute kidney injury versus chronic kidney disease, unknown baseline creatinine, improving. 3. Black tarry stool, status post EGD with esophageal ulceration. 4. Subacute nondisplaced right inferior pubic rami fracture with healing changes, likely to be chronic in nature. 5. Hypertension. 6. Rheumatoid arthritis. PLAN: At this time, EGD report noted. She will be discharged on PPIs and Carafate hopefully tomorrow. Discussed with GI. Hemoglobin is stable. Resume same home medications. I discussed the plan of care with the patient at bedside with nursing staff present. Carla Mata MD JSIan/MODL /[id number]
[2020-04-10] VITALS (7 sets, daily range): BP systolic 136–188; BP diastolic 50–71
[2020-04-10] MEDS: LACTATED RINGER'S 1,000 ML INJ SCH ×3 (00:25→19:45)
--- NOTE | 2020-04-10 07:00 | NUR ---
RCD PT AT BED PT IS ALERT AND ORIENTED IV PATENT BY SALINE FLUSH ,FAMILY BED LOW AND LOCKED CALL LIGHT IN REACH
[2020-04-10] MEDS: INSULIN REGULAR, HUMAN 100 UNIT/1 ML 3ML VIAL SQ SCH ×4 (07:30→21:00)
[2020-04-10] MEDS: SUCRALFATE 1 GM TAB PO SCH ×2 (07:30→16:30)
[2020-04-10 08:18] LABS: BASOPHILS % 0.3 % (0.0-1.0); EOSINOPHILS # (AUTO) 0.2 (0.0-0.4); EOSINOPHILS % 3.1 % (0.0-6.0); HEMATOCRIT 27.8 % (34.2-44.1); HEMOGLOBIN 8.7 g/dL (12.0-16.0); LYMPHOCYTES # (AUTO) 1.3 (1.0-3.2); LYMPHOCYTES % 20.4 % (18.0-39.1); MEAN CORPUSCULAR HGB CONC 31.3 g/dL (31-35); MEAN CORPUSCULAR VOLUME 102.2 fL (81-99); MONOCYTES # (AUTO) 0.7 (0.2-0.8); MONOCYTES % 10.5 % (4.4-11.3); NEUTROPHILS # (AUTO) 4.2 (2.1-6.9); NEUTROPHILS % 65.2 % (38.7-80.0); PLATELET COUNT 245 x10e3/uL (140-360); RED BLOOD COUNT 2.72 x10e6/uL (3.6-5.1); RED CELL DISTRIBUTION WIDTH 14.9 % (11.7-14.4)
[2020-04-10 08:32] LABS: ANION GAP 11.1 mmol/L (8-16); CALCIUM 7.8 mg/dL (8.4-10.2); CREATININE, SERUM 2.55 mg/dL (0.57-1.11); POTASSIUM 4.1 mmol/L (3.5-5.1)
[2020-04-10] MEDS: PANTOPRAZOLE 40 MG 10ML VIAL IV SCH ×2 (09:00→16:39)
[2020-04-10] MEDS: PAROXETINE HCL 20 MG TAB PO SCH (09:00)
[2020-04-10] MEDS: PREDNISONE 5 MG TAB PO SCH (09:00)
[2020-04-10] MEDS: IRON SUCROSE 100 MG in SODIUM CHLORIDE 0.9% 100 ML 100 ML IV SCH (09:00)
[2020-04-10] MEDS: SODIUM BICARBONATE 650 MG TAB PO SCH ×2 (13:45→16:39)
--- NOTE | 2020-04-10 18:41 | NUR ---
PT RESTING ON BED BED SIDE REPORT GIVEN TO ONCOMING NURSE
--- NOTE | 2020-04-10 19:35 | NUR ---
RECEIVED PT IN BED AOX3 RESPIRATIONS ARE EVEN AND UNLABORED RT HAND 20G LR AT 100CC/HR TELE SHOWS SR .RT BKA .CALL LIGHT WITH IN REACH NO ACUTE DISTRESS NOTED .CALL LIGHT WITH IN REACH ,CONTINUE TO MONITOR
[2020-04-10] MEDS: ATORVASTATIN 10 MG TAB PO SCH (20:49)
[2020-04-10] MEDS ORDERED: CYANOCOBALAMIN INJ 1,000 MCG/ML VIAL IM ONE (23:45)
--- NOTE | 2020-04-10 23:52 | Progress Note ---
DATE: 04/10/2020 Medicine Progress Note SUBJECTIVE: The patient is doing very well today with no complaints. Her renal function is slowly downtrending, but it seems she has underlying chronic kidney disease based on the creatinine and a renal ultrasound. PHYSICAL EXAMINATION: VITAL SIGNS: Temperature is 97.6, pulse 70, respiratory rate is 19, blood pressure 136/58, pulse ox 99% on room air. GENERAL: Not in acute distress. Alert and oriented x3. Cooperative on examination. HEENT: Head is normocephalic, atraumatic. Eyes; pupils are equal, round, and reactive to light bilaterally. Extraocular movements intact bilaterally. Throat; no evidence of erythema or exudates in the posterior pharynx. Has poor dentition. NECK: Supple. Good range of motion. PULMONARY: Clear to auscultation bilaterally. No wheezing, rales, or rhonchi. No crackles appreciated. CARDIOVASCULAR: Positive S1, S2. No murmurs, rubs, or gallops appreciated. ABDOMEN: Soft, nondistended, nontender to palpation. Bowel sounds present. MUSCULOSKELETAL: Strength is 5/5 throughout. No evidence of any muscle deficits on examination. No weakness appreciated. NEUROLOGICAL: Cranial nerves 2-12 are grossly intact. No evidence of any neurological deficits on exam. SKIN: Intact. Warm to touch. Good cap refill. PSYCHIATRIC: Normal affect and mood. EXTREMITIES: No edema. Good range of motion. LABORATORY DATA: White count 6.3, hemoglobin 8.7, hematocrit 27, and platelets were 245. Chemistry; sodium 140, potassium 4.1, chloride 119, bicarbonate is 14, anion gap of 11, BUN is 33, creatinine is 2.55, slowly downtrending. Calcium is 7.8. Iron saturation was 11%. Microbiology, none. IMAGING STUDIES: None new. IMPRESSION: 1. Generalized weakness, multifactorial from acute kidney injury secondary to dehydration, possibly also underlying chronic kidney disease. Creatinine is downtrending. 2. Acute kidney injury versus chronic kidney disease-likely chronic kidney disease based on renal ultrasound. 3. Black tarry stool, status post EGD with esophageal ulcerations. 4. Subacute nondisplaced right inferior pubic rami fracture with healing changes, likely to be chronic in nature. 5. Hypertension. 6. Rheumatoid arthritis. PLAN: At this time, I spoke with GI. Hemoglobin is stable. She will be discharged on PPIs and Carafate. As for her renal function, it seems like she has chronic disease as a renal ultrasound shows a very small kidney. She probably has more of a functioning left kidney than anything. I did add sodium bicarbonate tabs. Her creatinine is downtrending. Continue with low-dose lactated Ringer. Continue with same home medications, which I have initiated. Hemoglobin is stable. Possibly discharge tomorrow. We will discuss with primary care physician tomorrow. As for her subacute nondisplaced right inferior pubic rami fracture, these are all healing changes chronic in nature, no other intervention is needed. MD SHANNON Adams/TOBYL /[id number]
[2020-04-11] VITALS (9 sets, daily range): BP systolic 104–204; BP diastolic 67–84
[2020-04-11 05:17] LABS: BASOPHILS % 0.5 % (0.0-1.0); EOSINOPHILS # (AUTO) 0.2 (0.0-0.4); EOSINOPHILS % 2.8 % (0.0-6.0); HEMATOCRIT 24.2 % (34.2-44.1); HEMOGLOBIN 7.8 g/dL (12.0-16.0); LYMPHOCYTES # (AUTO) 1.4 (1.0-3.2); LYMPHOCYTES % 22.4 % (18.0-39.1); MEAN CORPUSCULAR HEMOGLOBIN 32.2 pg (28-32); MEAN CORPUSCULAR HGB CONC 32.2 g/dL (31-35); MONOCYTES # (AUTO) 0.8 (0.2-0.8); NEUTROPHILS # (AUTO) 3.8 (2.1-6.9); NEUTROPHILS % 60.8 % (38.7-80.0); PLATELET COUNT 226 x10e3/uL (140-360); RED BLOOD COUNT 2.42 x10e6/uL (3.6-5.1); RED CELL DISTRIBUTION WIDTH 14.9 % (11.7-14.4)
[2020-04-11 05:31] LABS: ANION GAP 10.1 mmol/L (8-16); CALCIUM 7.8 mg/dL (8.4-10.2); CREATININE, SERUM 2.08 mg/dL (0.57-1.11); POTASSIUM 4.1 mmol/L (3.5-5.1)
--- NOTE | 2020-04-11 05:40 | NUR ---
PT RESTING DENIES PAIN CALL LIGHT WITHIN REACH ,CONTINUE TO MONITOR
[2020-04-11] MEDS: LACTATED RINGER'S 1,000 ML INJ SCH ×2 (05:54→16:52)
--- NOTE | 2020-04-11 07:00 | NUR ---
RCD PT AT BED PT IS ALERT AND ORIENTED IV PATENT BY SALINE FLUSH , BED LOW AND LOCKED CALL LIGHT IN REACH
--- NOTE | 2020-04-11 07:02 | NUR ---
BEDSIDE REPORT GIVEN TO THE ONCOMING NURSE
[2020-04-11] MEDS: SUCRALFATE 1 GM TAB PO SCH ×2 (07:30→16:30)
[2020-04-11] MEDS: INSULIN REGULAR, HUMAN 100 UNIT/1 ML 3ML VIAL SQ SCH ×4 (07:30→21:00)
[2020-04-11] MEDS: SODIUM BICARBONATE 650 MG TAB PO SCH ×2 (09:00→16:52)
[2020-04-11] MEDS: IRON SUCROSE 100 MG in SODIUM CHLORIDE 0.9% 100 ML 100 ML IV SCH (09:00)
[2020-04-11] MEDS: PANTOPRAZOLE 40 MG 10ML VIAL IV SCH ×2 (09:00→16:52)
[2020-04-11] MEDS: PAROXETINE HCL 20 MG TAB PO SCH (09:00)
[2020-04-11] MEDS: CYANOCOBALAMIN INJ 1,000 MCG/ML VIAL IM SCH (09:00)
[2020-04-11] MEDS: PREDNISONE 5 MG TAB PO SCH (09:00)
--- NOTE | 2020-04-11 13:48 | NUR ---
IMM letter delivered and explained to pt. She verbalized understanding. States she will go home once the doctors clear her. Copy given to pt. Signed copy placed in chart.
--- NOTE | 2020-04-11 17:45 | NUR ---
HD DONE AND REMOVED 2 LTRS Addendum: 04/11/20 at 1802 by Yahaira Cruz RN WRONG PT
--- NOTE | 2020-04-11 18:00 | NUR ---
PT WENT TO PROCEDURE IN SAFE CONDITION
--- NOTE | 2020-04-11 20:04 | Diagnostic Imaging Report ---
Tagged-RBC GI Bleed Study Clinical information: 79-year-old female with generalized weakness. Discussion: The patient's own red blood cells were labeled with 25 mCi of technetium-99m pertechnetate using the in vitro method (UltraTag). Dynamic images of the abdomen were obtained through 60 minutes. Distribution of tracer activity appears physiologic throughout the abdomen. No abnormal accumulation of tracer is seen within the gastrointestinal lumen. Impression: No scan evidence of active gastrointestinal bleeding at this time. Signed by: Dr. Leyla Arteaga M.D. on 04/11/2020 8:01 PM
--- NOTE | 2020-04-11 20:25 | NUR ---
PT CAME BACK FROM THE PROCEDURE ,PT RESTING .CONTINUE TO MONITOR
[2020-04-11] MEDS: ATORVASTATIN 10 MG TAB PO SCH (21:53)
[2020-04-12] VITALS (7 sets, daily range): BP systolic 148–188; BP diastolic 59–82
[2020-04-12] MEDS: NIFEDIPINE CR 30 MG TAB PO SCH ×2 (00:46→08:12)
--- NOTE | 2020-04-12 01:37 | Progress Note ---
DATE: 04/11/2020 Medicine Progress Note SUBJECTIVE: The patient is doing very well today. Her hemoglobin did drop. Spoke with GI recommends RBC tagged scan. OBJECTIVE: VITAL SIGNS: She is afebrile, pulse 72, respiratory rate is 19, blood pressure was 173/79, and pulse ox 99% on room air. GENERAL: Not in acute distress. Alert and oriented x3. Cooperative on examination. HEENT: Head normocephalic and atraumatic. Eyes; pupils are equal, round, and reactive to light bilaterally. Extraocular movements are intact bilaterally. Throat; no evidence of any erythema or exudates in the posterior pharynx. Has poor dentition. NECK: Supple. Good range of motion. PULMONARY: Clear to auscultation bilaterally. No wheezing, rales, or rhonchi. No crackles appreciated. CARDIOVASCULAR: Positive S1 and S2. No murmurs, rubs, or gallops. GI: Abdomen soft, nontender, nondistended to palpation. Bowel sounds present. MUSCULOSKELETAL: Strength 5/5 throughout. No evidence of muscle deficits on examination. No weakness appreciated. NEUROLOGIC: cranial nerves 2 through 12 are grossly intact. No evidence of any neurological deficits on exam. SKIN: Intact. Warm to touch. Good cap refill. PSYCHIATRIC: Normal affect and mood. LABORATORY DATA: Labs show white count 6, hemoglobin 7.8, hematocrit 24, and platelets of 226. Chemistry reviewed shows creatinine is 2, BUN 27 downtrending, bicarbonate is 17. Sodium 142, potassium is 4.1, calcium is 7.8, and glucose is 94. IMAGING STUDIES: RBC tagged scan, no evidence of active GI bleeding at this time. IMPRESSION: 1. Generalized weakness, multifactorial from acute kidney injury secondary to dehydration/chronic kidney disease with creatinine down trending. 2. Acute kidney injury versus chronic kidney disease. 3. Black tarry stools status post EGD with esophageal ulcerations. 4. Subacute nondisplaced right inferior pubic rami fracture with healing changes, likely to be chronic in nature. 5. Hypertension. 6. Rheumatoid arthritis. PLAN: At this time, I spoke with GI, recommends RBC tagged scan which has been performed, found to be negative for any bleeding. PPIs, Carafate. Hemoglobin will repeat in the morning. If stable, discharge home. As per other etiologies, we would like to talk with the patient. I did speak with the patient at bedside and she verbalized understanding. As for subacute right inferior pubic rami, there is no surgical intervention needed at this time. MD SHANNON Adams/MODL /[id number]
[2020-04-12 05:14] LABS: BASOPHILS % 0.6 % (0.0-1.0); EOSINOPHILS # (AUTO) 0.3 (0.0-0.4); EOSINOPHILS % 4.1 % (0.0-6.0); HEMATOCRIT 25.7 % (34.2-44.1); HEMOGLOBIN 8.1 g/dL (12.0-16.0); LYMPHOCYTES # (AUTO) 1.4 (1.0-3.2); LYMPHOCYTES % 20.6 % (18.0-39.1); MEAN CORPUSCULAR HEMOGLOBIN 31.4 pg (28-32); MEAN CORPUSCULAR HGB CONC 31.5 g/dL (31-35); MEAN CORPUSCULAR VOLUME 99.6 fL (81-99); MONOCYTES # (AUTO) 0.7 (0.2-0.8); NEUTROPHILS # (AUTO) 4.2 (2.1-6.9); NEUTROPHILS % 63.2 % (38.7-80.0); PLATELET COUNT 245 x10e3/uL (140-360); RED BLOOD COUNT 2.58 x10e6/uL (3.6-5.1); RED CELL DISTRIBUTION WIDTH 14.7 % (11.7-14.4)
[2020-04-12 05:32] LABS: CALCIUM 7.8 mg/dL (8.4-10.2); CREATININE, SERUM 1.8 mg/dL (0.57-1.11)
--- NOTE | 2020-04-12 06:02 | NUR ---
PT RESTING DENIES PAIN CALL LIGHT WITHIN REACH ,CONTINUE TO MONITOR
--- NOTE | 2020-04-12 06:50 | NUR ---
RECEIVED BEDSIDE SHIFT REPORT FROM OFF GOING NURSE. PATIENT IS IN STABLE CONDITION. IV LINE IS PATENT. CALL LIGHT WITHIN REACH. BED IN THE LOWEST POSITION. BED ALARM ON.
--- NOTE | 2020-04-12 07:20 | NUR ---
BED SIDE REPORT GIVEN TO THE ONCOMING NURSE
[2020-04-12] MEDS: INSULIN REGULAR, HUMAN 100 UNIT/1 ML 3ML VIAL SQ SCH ×2 (07:30→11:30)
[2020-04-12] MEDS: PANTOPRAZOLE 40 MG 10ML VIAL IV SCH (08:11)
[2020-04-12] MEDS: PREDNISONE 5 MG TAB PO SCH (08:11)
[2020-04-12] MEDS: SUCRALFATE 1 GM TAB PO SCH (08:11)
[2020-04-12] MEDS: PAROXETINE HCL 20 MG TAB PO SCH (08:11)
[2020-04-12] MEDS: IRON SUCROSE 100 MG in SODIUM CHLORIDE 0.9% 100 ML 100 ML IV SCH (08:11)
[2020-04-12] MEDS: CYANOCOBALAMIN INJ 1,000 MCG/ML VIAL IM SCH (08:11)
[2020-04-12] MEDS: SODIUM BICARBONATE 650 MG TAB PO SCH (08:12)
[2020-04-12] MEDS ORDERED: HEPARIN SOD (PORCINE) 1000 UNIT/ML SDV ONE (12:07)
--- NOTE | 2020-04-12 12:12 | NUR ---
RECEIVED DISCHARGE ORDER FROM DR. WALTERS. PATIENT IS IN STABLE CONDITION. IV LINE TO RIGHT WRIST DISCONTINUED WITH TIP INTACT, PRESSURE APPLIED TO SITE, NO BLEEDING NOTED. DISCHARGE TEACHING PROVIDED TO PATIENT, SHE VERBALIZED UNDERSTANDING. TRANSITION OF CARE FOLDER AND ALL PERSONAL ITEMS ON HAND. PATIENT ACCOMPANIED TO PRIVATE AUTO VIA WHEELCHAIR BY STAFF.
[2020-04-12] MEDS ORDERED: NIFEDIPINE CR 30 MG TAB PO SCH (21:00)
--- NOTE | 2020-04-12 23:03 | Discharge Summary ---
FINAL DISCHARGE DIAGNOSES: 1. Generalized weakness secondary to acute kidney injury from dehydration from chronic kidney disease with downtrending creatinine. 2. Acute kidney injury versus chronic kidney disease. 3. Black tarry stool status post EGD performed shows evidence of esophageal ulcerations. 4. Subacute nondisplaced right inferior pubic rami fracture with healing changes, likely to be chronic in nature-I discussed this with the patient at bedside. I discussed thoroughly with the nurse present that this does not need any intervention instead needs repeat imaging as an outpatient for healing at a later date. She verbalized understanding. Nurse was present when I discussed this with the patient. 5. Hypertension. 6. Rheumatoid arthritis. CONSULTANTS: GI. PHYSICAL EXAMINATION: VITAL SIGNS: Temperature is 99.1, pulse 72, respiratory rate is 18, blood pressure 154/78, pulse ox 100% on room air. LABORATORY FINDINGS: Show white count 6.6, hemoglobin 8.1, hematocrit 25, platelets of 245. Coagulation; PT 12, INR 0.92, PTT 30. Chemistry; sodium 141, potassium 4.0, chloride 116, bicarb 18, anion gap of 11, BUN is 24, creatinine is 1.8 on admission, creatinine was 5.2. Glucose 93, calcium is 7.8. Iron saturation was 11%. LFTs within normal range. Urinalysis negative. Stool occult was positive for blood. Coronavirus not detected. IMAGING STUDIES: 1. CT abdomen and pelvis shows subacute appearing nondisplaced right inferior pubic rami fracture with fracture healing changes. This is all chronic in nature. Centrilobular emphysema with 6 mm of pleural pulmonary nodule in the right middle lobe. Needs outpatient follow with CT chest in 6 months-discussed with the patient and family. 2. Colonic diverticulosis without evidence of any acute diverticulitis. 3. No acute abdominopelvic process identified. Renal ultrasound shows a right kidney 8.4 cm, left kidney 9.7 cm. There is evidence of chronic medical renal disease. No hydronephrosis noted or shadowing nephrolithiasis. Chest x-ray shows no acute abnormalities. GI bleeding scan shows no evidence of active GI bleeding at this time. HOSPITAL COURSE: A 79-year-old female, who came into the ED. Report stating evidence of generalized weakness and evidence of black tarry stool. GI was consulted. The patient was on Protonix. She underwent status post EGD that showed evidence of a large ulcer distal esophagus, nodule in GE junction. Biopsies in the large hiatal hernia with gastritis. This was performed on 04/08/2020. The patient did well postprocedurally with no complaints. Her hemoglobin maintained stable with no issues. She was discharged on Carafate and Protonix. Of note, an RBC tagged scan was found to be negative for any active bleeding. She did have underlying acute kidney injury and possibly underlying chronic kidney disease requiring IV fluid hydration. Renal ultrasound with results above. The patient will need to follow up with an outpatient perishable freight inspector. She also was found to have an incidental subacute nondisplaced right inferior pubic rami fracture with healing changes, likely to be chronic in nature. I discussed this with the patient with the nursing staff present throughout the entire conversation. The patient will need to get a repeat image in a later date. These pubic rami fractures are not operable, instead they should heal on their own. The patient should continue to ambulate. I discussed this with her very thoroughly at bedside with the nursing staff and she verbalized understanding. Her blood pressure was elevated, but I adjusted her medications accordingly. The patient was stable prior to being discharged to home. On the day of discharge, vital signs were stable, labs reviewed and stable. The patient was seen and evaluated, and examined thoroughly on the day of discharge. No other complaints. The patient verbalized understanding and agrees to plan of care to follow up accordingly as an outpatient with primary care physician in 1 week and GI specialist in 2 weeks' time. Must follow up with repeat imaging of the pelvis in about 3-4 weeks time to see resolution and also healing of the actual hip, which is currently seems to be healing at this time. MEDICATIONS: See med reconciliation form. DISPOSITION: Home. CONDITION: Stable. DIET: Heart healthy. In the event of any worsening symptoms, the patient was advised to come back to the ED for further evaluation. Discharge summary took greater than 35 minutes. MD SHANNON Adams/TOBYL /[id number]
== END 2020-04-12 12:12 | disposition home or self-care (01) | DRG 682 ==
LOC: ER 20:32 → ERHOLD 04-06 00:43 → MED/SURG2 04-06 04:33
PROVIDERS: ADMIT Internal Medicine; ATTEND Internal Medicine
PROC: 0DB78ZX Excision of Stomach, Pylorus, Via Natural or Artificial Opening Endoscopic, Diagnostic (ICD-10-PCS; 2020-04-08)
PROC: 0DB48ZX Excision of Esophagogastric Junction, Via Natural or Artificial Opening Endoscopic, Diagnostic (ICD-10-PCS; principal; 2020-04-08 13:00)
DX: N17.9 Acute kidney failure, unspecified (principal); K22.11 Ulcer of esophagus with bleeding; M84.454A Pathological fracture, pelvis, initial encounter for fracture; D62 Acute posthemorrhagic anemia; E86.0 Dehydration; I10 Essential (primary) hypertension; I25.10 Atherosclerotic heart disease of native coronary artery without angina pectoris; Z09 Encounter for follow-up examination after completed treatment for conditions other than malignant neoplasm; Z86.718 Personal history of other venous thrombosis and embolism; I73.9 Peripheral vascular disease, unspecified; H40.9 Unspecified glaucoma; Z82.49 Family history of ischemic heart disease and other diseases of the circulatory system; Z91.048 Other nonmedicinal substance allergy status; Z89.511 Acquired absence of right leg below knee; M06.9 Rheumatoid arthritis, unspecified; N18.9 Chronic kidney disease, unspecified; K57.90 Diverticulosis of intestine, part unspecified, without perforation or abscess without bleeding; K44.9 Diaphragmatic hernia without obstruction or gangrene; K29.70 Gastritis, unspecified, without bleeding; Z95.5 Presence of coronary angioplasty implant and graft; D50.9 Iron deficiency anemia, unspecified; Z11.59 Encounter for screening for other viral diseases
CPT/HCPCS: 36415; 43239; 71045; 74176; 76770; 78278; 80048; 80053; 80076; 81001; 82150; 82270; 82607; 82728; 82746; 82948; 83540; 83690; 84466; 85025; 85045; 85610; 85730; 88305; 88312; 96361; 97139; 99284; A9512; J1644; J1756; J1817; J2001; J2250; J2405; J2765; J3010; J3420; J7030; J7121; J7512; U0002

== ENCOUNTER → 2020-12-11 | Outpatient (CLI) | payer MEDICARE ==
[~2020-12-11] MED LIST: ATORVASTATIN CA10 MG PO; CYCLOBENZAPRINE10 MG PO; GABAPENTIN300 MG PO; LISINOPRIL10 MG PO; MELOXICAM7.5 MG PO; METHOTREXA25 MG/1 ML SC; PAROXETINE HCL20 MG PO; PREDNISONE5 MG PO; PROTONIX20 MG PO; SUCRALFATE1 GM PO; TIZANIDINE HCL4 M1; TRAZODONE HCL50 MG PO
== END ==
LOC: MAMMO 08:45
PROVIDERS: ATTEND Internal Medicine
DX: Z12.31 Encounter for screening mammogram for malignant neoplasm of breast (principal)
CPT/HCPCS: 77067

== ENCOUNTER 2021-04-21 20:36 | Emergency (ER) | payer MEDICARE ==
[~2021-04-21] VITALS: Ht 149.9 cm; Wt 56.7 kg
[2021-04-21 23:13] LABS: INFLUENZAE A&B ANTIGEN (RAPID) NEGATIVE (NEGATIVE); STREPTOCOCCUS GRP A ANTIGEN NEGATIVE (NEGATIVE)
[2021-04-22] MEDS ORDERED: PREDNISONE20 MG PO (00:05)
[2021-04-22] MEDS ORDERED: VENTOLIN HFA18 GM INH (00:05)
[2021-04-22] MEDS ORDERED: AZITHROMYCIN250 MG PO (00:05)
== END 2021-04-22 00:10 | disposition home or self-care (01) ==
LOC: ER 20:51
DX: J06.9 Acute upper respiratory infection, unspecified (principal); R05 Cough; R51.9 Headache, unspecified; I12.9 Hypertensive chronic kidney disease with stage 1 through stage 4 chronic kidney disease, or unspecified chronic kidney disease; N18.9 Chronic kidney disease, unspecified; K21.9 Gastro-esophageal reflux disease without esophagitis; I25.10 Atherosclerotic heart disease of native coronary artery without angina pectoris; Z79.899 Other long term (current) drug therapy; Z86.711 Personal history of pulmonary embolism; Z86.718 Personal history of other venous thrombosis and embolism; Z88.0 Allergy status to penicillin; Z91.048 Other nonmedicinal substance allergy status
CPT/HCPCS: 71045; 83518; 87070; 87400; 93005; 99283